=== PATIENT | female | born 1970 ===

== ENCOUNTER 2020-02-07 12:15 | Emergency (ER) | payer OTHER, SELFPAY ==
[2020-02-07 12:30] VITALS: BP 169/107; PULSE 115; RESP 18; TEMP 36.6; O2SAT 100; BMI 23.0
--- NOTE | 2020-02-07 12:49 | ECG_ITS ---
[facility] Test Date: 2020-02-07 Pat Name: Olga Brown Department: Room: Gender: Female [employer]: : 1970 Requested By: Nick Sheridan Order Number: [id number] Castellanos MD: Maynor Xiong M.D. Measurements Intervals [place] Rate: 96 P: 68 MI: 169 QRS: 86 QRSD: 75 T: 52 QT: 336 QTc: 426 Interpretive Statements SINUS RHYTHM POSSIBLE LEFT ATRIAL ENLARGEMENT [-0.1mV P WAVE IN V1/V2] No previous ECG available for comparison Electronically Signed On 02-07-2020 13:24:39 CDT by Maynor Xiong M.D. [email or web address]
--- NOTE | 2020-02-07 12:49 | CT_ITS ---
WS: [id number] CT HEAD TECHNIQUE: Noncontrast CT of the head obtained from the skullbase to the vertex. CLINICAL INFORMATION: vision changes left eye COMPARISON: MRI 1 31,012 DLP: 648.[address] scans at [facility] use at least one of these dose optimization techniques: automat ed exposure control; mA and/or kV adjustment per patient size (includes targeted exams where dose is matched to clinical indication); or iterative reconstruction. FINDINGS: No evidence of intracranial hemorrhage or mass effect. Ventricular system and basal cisterns are shane nt. No extra-axial fluid collections. No evidence of mass or mass effect. Normal buchanan-white different iation. 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 No hydrocephalus. Paranasal sinuses and mastoid air cells are well aerated. .Normal visualized soft tissues. Notified WILLIAM Bañuelos at 02/07/2020 1:[address]/CT head wo con* [id number] IMPRESSION: 1. No evidence of intracranial hemorrhage or mass effect. 2. Normal buchanan-white differentiation. 3. 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 No hydrocephalus. 4. No acute intracranial findings.
--- NOTE | 2020-02-07 12:55 | ED_ITS ---
HPI - General Adult General: Chief complaint: General Medical Stated complaint: hand numbness/dizzy Time Seen by Provider: 02/07/20 12:49 History of Present Illness: HPI narrative: Patient states he was just driving to lunch from work and then just got change in vision her left eye she did not feel right got some numbness in her fingers she pulled over and now she is here. Says she does feel better vision is better numbness is gone out of her hands. complaint: Vision change temporary Onset (ago): minute(s) Location: eyes, left, right and upper extremity Severity: mild Associated symptoms: Reports no associated symptoms; Deny chest pain, dyspnea, headache(s), nausea, rash or vomiting Review of Systems Const: Denies: fever(s), chills or body aches Eyes: Reports: change in vision and blurry vision (Left eye for just a few minutes was blurry) ENMT: Denies: throat pain or nasal congestion Card: Denies: chest pain or dyspnea on exertion Resp: Denies: dyspnea, productive cough or non-productive cough GI: Denies: abdominal pain, nausea or vomiting Musc: Denies: extremity pain Skin/Breast: Denies: rash Neuro: Reports: other (Says she has some tingling numbness and then her fingers while she had a problem with her eye but that is improved); Denies: headache(s) Psych: Denies: anxiety or depression Sam/Lymph: Denies: easy bruising Physical Exam Const: COMMON NORMALS: no acute distress, average body habitus and patient oriented x3 HENMT: COMMON NORMALS: normocephalic HEAD & SCALP: normal to inspection and normocephalic FACE & SINUS: normal facial exam Eye: COMMON NORMALS: conjunctivae normal GENERAL EYE: appearance normal, both eyes and all related structures CONJUNCTIVA: Yes conjunctivae normal Neck/C-Spine: COMMON NORMALS: no JVD Chest: COMMONS NORMALS: normal inspection of the chest Resp: COMMON NORMALS: normal respiratory effort and clear to auscultation bilaterally AUSCULTATION: clear to auscultation bilaterally Cardio: COMMON NORMALS: no JVD, regular rate and regular rhythm RATE: regular rate RHYTHM: regular rhythm GI: COMMON NORMALS: Normal to inspection, nondistended, normoactive bowel sounds present Extremity: COMMON NORMALS: normal to inspection and full ROM Neuro: COMMON NORMALS: patient oriented x3, CN's II-XII intact bilaterally, moves all extremities, no focal motor deficits and no sensory deficits noted Course Vital Signs: Vital signs: Vital Signs Temperature 97.8 F 02/07/20 12:30 Pulse Rate 115 H 02/07/20 12:30 Respiratory Rate 18 02/07/20 12:30 Blood Pressure 169/107 02/07/20 12:30 Pulse Oximetry 100 02/07/20 12:30 Coding Level of Care Code ED Testing Lead for Sunita Carrillo
[2020-02-07 13:14] LABS: Basophils % 0.1 %; Eosinophils # 0.1 10^3/uL (0.0-0.8); Eosinophils % 0.8 %; Hematocrit 45.3 % (37.0-47.0); Hemoglobin 14.9 g/dL (11.5-15.3); Lymphocytes # 1.4 10^3/uL (0.8-4.8); Lymphocytes % 18.2 %; Mean Corpuscular HGB Conc 32.9 g/dL (30.0-36.0); Mean Corpuscular Hemoglobin 28.5 pg (28.0-34.0); Mean Corpuscular Volume 86.8 fL (81-99); Mean Platelet Volume 9.6 fL (7.4-10.4); Monocytes # 0.4 10^3/uL (0.2-0.9); Monocytes % 5.5 %; Neutrophils # 5.87 10^3/uL (1.8-7.7); Neutrophils % 75.1 %; Nucleated Red Blood Cells % 0 %; Platelet Count 298 10^3/cmm (130-400); Red Blood Count 5.22 10^6/uL (4.1-5.3); Red Cell Distribution Width 12.6 % (12.1-15.1); White Blood Count 7.8 10^3/uL (4.0-10.0)
[2020-02-07 13:28] LABS: INR 0.97 (0.8-1.2)
[2020-02-07 13:30] LABS: D Dimer <= 0.27 ug/mIFEU (0-0.59)
[2020-02-07 13:34] LABS: Alanine Aminotransferase 12 U/L (0-33); Albumin Level 4.8 g/dL (3.5-5.2); Alkaline Phosphatase 96 IU/L (35-105); Anion Gap 16.5 (5-19); Aspartate Amino Transferase 16 U/L (0-32); Blood Urea Nitrogen 11 mg/dL (6-20); Calcium 9.3 mg/dL (8.5-10.5); Carbon Dioxide 23 mmol/L (22-29); Chloride 102 mmol/L (98-107); Globulin 2.5 g/dL (1.3-4.6); Glomerular Filtration Rate 105.8 mL/min (90-130); Glucose 110 mg/dL (65-115); Osmolality Calculated 283 mOsm/kg (285-295); Potassium 3.5 mmol/L (3.5-5.1); Sodium 138 mmol/L (136-145); Total Bilirubin 0.4 mg/dL (0.15-1.2); Total Protein 7.3 g/dL (6.6-8.7)
[2020-02-07 13:35] LABS: Troponin T (5th) Once 6 ng/L (0-10)
[2020-02-07 13:38] VITALS: BP 149/84; PULSE 98; RESP 20; O2SAT 99
[2020-02-07] MEDS: sodium chloride 0.9% 1,000 ML 999 ML IV (13:42)
[2020-02-07 14:15] VITALS: BP 136/76; PULSE 87; RESP 18; TEMP 36.4; O2SAT 97
== END 2020-02-07 14:17 | disposition home or self-care (01) ==
PROVIDERS: Emergency Provider Nurse Practitioner Family; PCP Family Medicine
DX: R20.0 Anesthesia of skin (principal)
CPT/HCPCS: 12345; 36415; 70450; 80053; 84484; 85025; 85378; 85610; 93005; 93010; 96360; 99283; J7030